=== PATIENT | male | born 1985 | race Hispanic/Latino ===

== ENCOUNTER 2018-10-26 19:40 | Emergency (ER) | payer BC, OTHER ==
--- NOTE | 2018-10-26 19:50 | ED PDOC ---
Arrival/HPI - General Chief Complaint: Finger,Hand,&Wrist Historian: Patient - History of Present Illness Narrative History of Present Illness (Text): 10/26/18 19:49 32 y/o male, no significant pmh, nkda, c/o lt. hand pain s/p fall on it yesterday while playing [email or web address]. Aching pain, aggravated by movement, no numbness or tingling, no headache or night sweat, no rash, no head/neck/back injury, no other medical or psychological complaints. Past Medical History - Provider Review Nursing Documentation Reviewed: Yes - Infectious Disease Hx of Infectious Diseases: None - Past Medical History Past Medical History: No Previous - Cardiac Hx Cardiac Disorders: Yes Hx Hypertension: Yes - Pulmonary Hx Respiratory Disorders: No - Neurological Hx Neurological Disorder: No - HEENT Hx HEENT Disorder: No - Renal Hx Renal Disorder: No - Endocrine/Metabolic Hx Endocrine Disorders: No - Hematological/Oncological Hx Blood Disorders: No - Integumentary Hx Dermatological Disorder: No - Musculoskeletal/Rheumatological Hx Musculoskeletal Disorders: Yes Hx Fractures: Yes - Gastrointestinal Hx Gastrointestinal Disorders: No - Genitourinary/Gynecological Hx Genitourinary Disorders: No - Psychiatric Hx Psychophysiologic Disorder: No Hx Substance Use: Yes (marijuana) - Past Surgical History Past Surgical History: No Previous - Surgical History Hx Orthopedic Surgery: Yes Other/Comment: RIGHT WRIST SURGERY - Anesthesia Hx Anesthesia: No Hx Anesthesia Reactions: No Hx Malignant Hyperthermia: No - Suicidal Assessment Feels Threatened In Home Enviroment: No Family/Social History - Physician Review Nursing Documentation Reviewed: Yes Family/Social History: Unknown Family HX Smoking Status: Never Smoked Hx Alcohol Use: Yes Hx Substance Use: Yes (marijuana) Hx Substance Use Treatment: No Allergies/Home Meds Allergies/Adverse Reactions: Allergies No Known Allergies Allergy (Verified 10/26/18 19:44) Review of Systems - Review of Systems Constitutional: absent: Fatigue, Fevers Eyes: absent: Vision Changes Respiratory: absent: SOB Gastrointestinal: absent: Abdominal Pain, Diarrhea, Nausea, Vomiting Musculoskeletal: Arthralgias. absent: Back Pain, Neck Pain, Joint Swelling, Myalgias Skin: absent: Rash, Pruritis Neurological: absent: Headache, Dizziness Psychiatric: absent: Anxiety, Depression, Suicidal Ideation Physical Exam Vital Signs Reviewed: Yes Vital Signs Temp Pulse Resp BP Pulse Ox 10/26/18 19:44 98.4 F 61 16 144/83 98 Temperature: Afebrile Blood Pressure: Normal Pulse: Regular Respiratory Rate: Normal Appearance: Positive for: Well-Appearing, Non-Toxic, Comfortable Pain Distress: Mild Mental Status: Positive for: Alert and Oriented X 3 - Systems Exam Head: Present: Atraumatic, Normocephalic Pupils: Present: PERRL Extroacular Muscles: Present: EOMI Conjunctiva: Present: Normal Mouth: Present: Moist Mucous Membranes Neck: Present: Normal Range of Motion Respiratory/Chest: Present: Clear to Auscultation, Good Air Exchange. No: Respiratory Distress, Accessory Muscle Use Cardiovascular: Present: Regular Rate and Rhythm, Normal S1, S2. No: Murmurs Abdomen: No: Tenderness, Distention, Peritoneal Signs Back: Present: Normal Inspection Upper Extremity: Present: Normal Inspection, Other (Rt. hand/wrist: +ttp on the 5th metacarpal region with swelling, skin intact, no finger tenderness or sw elling, no deformity, FROM without limitation, sensation intact, motor 5/5, no scaphoid tenderness, neurovascular intact. ). No: Cyanosis, Edema Lower Extremity: Present: Normal Inspection. No: Edema Neurological: Present: GCS=15, CN II-XII Intact, Speech Normal Skin: Present: Warm, Dry, Normal Color. No: Rashes Psychiatric: Present: Alert, Oriented x 3, Normal Insight, Normal Concentration Medical Decision Making ED Course and Treatment: 10/26/18 19:58 -xray -motrin -observe and reassess 10/26/18 20:58 -Rt. hand xray: ER wet read: +5th metacarpal fracture -Ulnar gutter splint applied by me with neurovascular intact, sling -Discharge home with motrin, ulnar gutter splint, sling, copy of the CD, follow up with your own pmd and orthopedic/hand surgeon within 2 days, return to the ER for any new or worsening signs or symptoms. 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 Disposition/Present on Arrival - Present on Arrival Any Indicators Present on Arrival: No History of DVT/PE: No History of Uncontrolled Diabetes: No Urinary Catheter: No History of Decub. Ulcer: No History Surgical Site Infection Following: None - Disposition Have Diagnosis and Disposition been Completed?: Yes Diagnosis: Metacarpal bone fracture Disposition: HOME/ ROUTINE Disposition Time: 21:00 Patient Plan: Discharge Condition: IMPROVED Discharge Instructions (ExitCare): Hand Fracture Additional Instructions: -Discharge home with motrin, ulnar gutter splint, sling, copy of the CD, follow up with your own pmd and orthopedic/hand surgeon within 2 days, return to the ER for any new or worsening signs or symptoms. Prescriptions: Ibuprofen [Motrin] 600 mg PO QID PRN #30 tab PRN Reason: Other Referrals: David Quintero MD [Staff Provider] - Follow up with primary Vasiliy Ferrari DO [Staff Provider] - [place] [facility] [place] - Follow up with primary Forms: [employer] (Polish), WORK NOTE
[2018-10-26 20:45] VITALS: TEMP 98.4
[2018-10-26 20:46] VITALS: BMI 35.5
[2018-10-26 20:58] VITALS: BP 125/71; PULSE 79; RESP 18; O2SAT 100
--- NOTE | 2018-10-27 12:21 | RAD ---
PROCEDURE: Left Hand Radiographs. HISTORY: lt. hand 5th MCP pain COMPARISON: None. FINDINGS: BONES: Obliquely oriented minimally displaced linear fracture can be seen in the neck of the 5th metacarpal JOINTS: Normal. No osteoarthritic changes. SOFT TISSUES: Normal. OTHER FINDINGS: None. IMPRESSION: Obliquely oriented minimally displaced linear fracture can be seen in the neck of the 5th metacarpal
== END 2018-10-26 21:04 | disposition home or self-care (01) ==
LOC: ED 19:40
DX: S62.337A Displaced fracture of neck of fifth metacarpal bone, left hand, initial encounter for closed fracture (principal); W00.0XXA Fall on same level due to ice and snow, initial encounter; Y92.89 Other specified places as the place of occurrence of the external cause